=== PATIENT | male | born 1950 | race Caucasian/White ===

== ENCOUNTER → 2024-02-28 | Outpatient (CLI) | payer MEDICARE | LOC: MHCPAIN 09:18 | DX: M47.812 Spondylosis without myelopathy or radiculopathy, cervical region (principal); M54.2 Cervicalgia; Z98.1 Arthrodesis status ==

== ENCOUNTER → 2024-04-23 | Outpatient (CLI) | payer MEDICARE | LOC: MHCPAIN 13:22 | DX: M47.812 Spondylosis without myelopathy or radiculopathy, cervical region (principal); M54.2 Cervicalgia; E11.9 Type 2 diabetes mellitus without complications | CPT/HCPCS: G0463 ==